=== PATIENT | male | born 1985 | race Caucasian/White ===

== ENCOUNTER 2017-05-24 09:24 | Emergency (ER) | payer MEDICAID ==
[~2017-05-24] VITALS: Ht 170.2 cm; Wt 136.1 kg
[~2017-05-24 09:24] MED LIST: OMEP20TA62 PO
[2017-05-24 09:34] VITALS: BP 144/89
[2017-05-24] MEDS ORDERED: BACITRACIN ZINC OINT 500U/GM, 0.9 GM ONE (10:25)
== END 2017-05-24 10:39 | disposition home or self-care (01) ==
LOC: ED 10:33
DX: L03.115 Cellulitis of right lower limb (principal); B35.3 Tinea pedis; Z87.891 Personal history of nicotine dependence
CPT/HCPCS: 99283

== ENCOUNTER 2018-04-22 09:21 | Emergency (ER) | payer MEDICAID ==
[~2018-04-22] VITALS: Ht 170.2 cm; Wt 148.7 kg
[2018-04-22 10:18] LABS: BASOPHILS # (AUTO) 0.03 x10^3/uL (0-0.1); BASOPHILS % (AUTO) 0 % (0-1); EOSINOPHILS # (AUTO) 0.07 x10^3/uL (0-0.4); EOSINOPHILS % (AUTO) 1 % (1-7); LYMPHOCYTES # (AUTO) 1.79 x10^3/uL (1-3.4); LYMPHOCYTES % (AUTO) 29 % (22-44); MD NO; MEAN CORPUSCULAR HEMOGLOBIN 30.4 pg (27.5-34.5); MEAN CORPUSCULAR HGB CONC 34.5 g/dL (33.2-36.2); MEAN CORPUSCULAR VOLUME 88.3 fL (81-97); MEAN PLATELET VOLUME 7.8 fL (7.4-10.4); MONOCYTES # (AUTO) 0.44 x10^3/uL (0.2-0.8); MONOCYTES % (AUTO) 7 % (2-9); NEUTROPHILS # (AUTO) 3.91 x10^3/uL (1.8-6.8); NEUTROPHILS % (AUTO) 63 % (42-75); PLATELET COUNT 238 x10^3/uL (130-400); RED BLOOD COUNT 5.38 x10^6/uL (4.38-5.82); RED CELL DISTRIBUTION WIDTH 13.6 % (9.4-14.8)
[2018-04-22 10:25] LABS: INTERNATIONAL NORMALIZED RATIO 1.01 (0.93-1.1); PROTHROMBIN TIME 10.7 Seconds (9.6-11.5)
[2018-04-22 10:29] LABS: ALBUMIN 3.9 g/dL (3.4-5.0); ANION GAP 6 mmol/L (5-15); CALCIUM 8.8 mg/dL (8.5-10.1); CHLORIDE 109 mmol/L (98-107); CREATININE 0.93 mg/dL (0.7-1.3)
[2018-04-22 11:08] VITALS: BP 142/80
[2018-04-22] MEDS ORDERED: OMNIPAQUE 350 MG/ML, 100ML BOTTLE ONE (11:09)
== END 2018-04-22 11:45 | disposition home or self-care (01) ==
LOC: ED 10:30
DX: K62.5 Hemorrhage of anus and rectum (principal); K60.0 Acute anal fissure; Z87.891 Personal history of nicotine dependence
CPT/HCPCS: 36415; 74177; 80048; 82040; 83690; 85025; 85610; 99284; Q9967

== ENCOUNTER 2019-07-22 20:24 | Emergency (ER) | payer OTHER ==
[~2019-07-22] VITALS: Ht 170.2 cm; Wt 142.0 kg
[~2019-07-22 20:24] MED LIST changes: +IBUP-1902 PO
[2019-07-22 21:05] VITALS: BP 109/77
--- NOTE | 2019-07-22 21:06 | NUR ---
cell [phone]
--- NOTE | 2019-07-22 21:07 | NUR ---
strep +. no fevers. chills. cough. sore throat. tachy. not drinking d/t sore throat. diarrhea 3x/day x2 days. call jose in reach. on iso. swabs pending. aware of poc. as
[2019-07-22 21:08] LABS: RAPID INFLUENZA A Negative (Negative); RAPID INFLUENZA B Negative (Negative)
--- NOTE | 2019-07-22 21:28 | NUR ---
med req from pharm. as
[2019-07-22] MEDS ORDERED: BICILLIN-LA 1,200,000 UNITS/2 ML IM ONE (21:30)
--- NOTE | 2019-07-22 22:03 | NUR ---
Received report and assumed patient care. Patient resting comfortably. Needs antibiotics.
--- NOTE | 2019-07-22 22:04 | NUR ---
report received bridgett taveras, med given to bridgett taveras. as
== END 2019-07-22 22:52 | disposition home or self-care (01) ==
LOC: ED 22:50
DX: J02.0 Streptococcal pharyngitis (principal); Z20.828 Contact with and (suspected) exposure to other viral communicable diseases; M79.10 Myalgia, unspecified site; Z87.891 Personal history of nicotine dependence
CPT/HCPCS: 71046; 87400; 87486; 87581; 87633; 87798; 87880; 96372; 99284; J0561

== ENCOUNTER 2020-02-10 10:45 | Emergency (ER) | payer SELFPAY ==
[~2020-02-10] VITALS: Ht 170.2 cm; Wt 130.0 kg
--- NOTE | 2020-02-10 11:04 | NUR ---
first contact with pt. pt c/o rectal bleeding bright red blood with diarrhea x 2 days. pt stated"i had it before and did colonoscopy, then stopped for a few years." pt denies abd pain/n/v. pt's aox4. resps even and unlabored. bp/spo2 monitors in place. call light within reach.
[2020-02-10 11:40] VITALS: BP 142/88
--- NOTE | 2020-02-10 11:40 | NUR ---
pt resting in [facility]. pt's aox4. resps even and unlabored. bp/spo2 monitors in place. call light within reach.
[2020-02-10 11:52] LABS: BASOPHILS % (AUTO) 1 % (0-1); EOSINOPHILS % (AUTO) 1 % (1-7); LYMPHOCYTES % (AUTO) 22 % (22-44); MEAN CORPUSCULAR HEMOGLOBIN 30.3 pg (27.5-34.5); MEAN CORPUSCULAR HGB CONC 34.4 g/dL (33.2-36.2); MEAN PLATELET VOLUME 7.2 fL (7.4-10.4); MONOCYTES % (AUTO) 6 % (2-9); NEUTROPHILS % (AUTO) 71 % (42-75); PLATELET COUNT 258 x10^3/uL (130-400); RED BLOOD COUNT 5.24 x10^6/uL (4.38-5.82); RED CELL DISTRIBUTION WIDTH 14.9 % (9.4-14.8)
[2020-02-10 11:56] LABS: ALBUMIN 3.7 g/dL (3.4-5.0); ANION GAP 8 mmol/L (5-15); CALCIUM 9.2 mg/dL (8.5-10.1); CHLORIDE 111 mmol/L (98-107); CREATININE 0.87 mg/dL (0.7-1.3)
[2020-02-10 12:04] LABS: MD NO
--- NOTE | 2020-02-10 13:03 | NUR ---
Patient given discharge instructions and they have confirmed that they understand the instructions. Patient ambulatory with steady gait.
== END 2020-02-10 13:04 | disposition home or self-care (01) ==
LOC: ED 11:22
DX: K62.5 Hemorrhage of anus and rectum (principal); K64.8 Other hemorrhoids
CPT/HCPCS: 36415; 80048; 82040; 85025; 99283